=== PATIENT | female | born 1990 | race African-American/Black ===

== ENCOUNTER 2020-08-17 17:22 | Emergency (ER) | payer BC ==
[~2020-08-17] VITALS: Ht 162.6 cm; Wt 58.1 kg
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
--- NOTE | 2020-08-17 17:53 | NUR ---
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
[2020-08-17] MEDS ORDERED: TDAP [DIPH/PERTUSSIS/TET] 0.5 ML VIAL IM ONE ×2 (18:00→19:01)
[2020-08-17] MEDS ORDERED: BACI/NEOM/POLY B OINT PKT 1 UDPKT PACKET TP ONE (19:30)
--- NOTE | 2020-08-17 19:41 | NUR ---
EMT AT BEDSIDE FOR WOUND CLEANING
[2020-08-17] MEDS ORDERED: IBUP-1955 PO (19:43)
[2020-08-17 20:02] VITALS: BP 132/89
== END 2020-08-17 20:02 | disposition home or self-care (01) ==
LOC: ER 17:31
DX: S80.212A Abrasion, left knee, initial encounter (principal); S80.211A Abrasion, right knee, initial encounter; V49.49XA Driver injured in collision with other motor vehicles in traffic accident, initial encounter; Y93.89 Activity, other specified; Y92.413 State road as the place of occurrence of the external cause; Y99.8 Other external cause status
CPT/HCPCS: 73564-TC; 90715